=== PATIENT | male | born 1985 | race Caucasian/White ===

== ENCOUNTER 2023-02-22 19:44 | Emergency (ER) | payer OTHER ==
--- NOTE | 2023-02-22 22:01 | ED Physician Documentation ---
History of Present Illness - Stated complaint Stated Complaint: LT ANKLE PX - Chief complaint Chief Complaint: Ext Problem - History obtained from History obtained from: Patient - History of Present Illness Timing: Today Pain level max: 7 Pain level now: 4 - Additonal information Additional information: 37-year-old male states that he stepped off of his porch and rolled his left ankle earlier today. He was seen at the walk-in clinic, given a plastic splint and sent here for x-ray as their x-ray machine was reportedly down. No head, neck, back pain. No other injuries. Review of Systems Neurologic: denies: Headache PD PAST MEDICAL HISTORY - Past Medical History Past Medical History: No - Past Surgical History Past Surgical History: No - Allergies Allergies/Adverse Reactions: Allergies Allergy/AdvReac Type Severity Reaction Status Date / Time No Known Drug Allergies Allergy Verified 02/22/23 20:04 PD ED PE NORMAL - Vitals Vital signs reviewed: Yes - General General: Alert and oriented X 3, No acute distress - Derm Derm: Warm and dry - Extremities Extremities: Other (Left ankle - Tender to palpation over the lateral malleolus. Mild swelling. Otherwise normal examination of the lower extremity, foot and ankle. Neurovascular intact.) - Neuro Neuro: Alert and oriented X 3 Results - Vitals Vitals: Vital Signs - 24 hr 02/22/23 02/22/23 20:01 22:06 Temperature 36.1 C L 36.6 C Heart Rate 100 88 Respiratory 16 16 Rate Blood Pressure 146/85 H 130/80 O2 Saturation 98 100 Oxygen O2 Source Room air - Rads (name of study) Left ankle x-ray Relevant Findings:: EMP independent interpretation of test PD Medical Decision Making - ED course Complexity details: re-evaluated patient, considered differential, d/w patient ED course: No acute findings on x-ray of the left ankle other than soft tissue swelling. Placed in a gel splint for comfort and given crutches. Declines anything for home for pain. We will have him follow-up with his PCP for further care still having symptoms in 1 week. He may bear weight as tolerated. Patient counseled regarding signs and symptoms for which I believe and urgent re-evaluation would be necessary. Patient with good understanding of and agreement to plan and is comfortable going home at this time This document was made in part using voice recognition software. While efforts are made to proofread this document, sound alike and grammatical errors may occur. Departure - Departure Disposition: 01 Home, Self Care Clinical Impression: Left ankle sprain Qualifiers: Encounter type: initial encounter Involved ligament of ankle: unspecified ligament Qualified Code(s): S93.402A - Sprain of unspecified ligament of left ankle, initial encounter Condition: Good Instructions: ED Sprain Ankle W X Ray Follow-Up: your,doctor in 1 week [Other] Comments: Your x-ray does not show any fractures or dislocations tonight. You were placed in an ankle brace and given crutches. You can use Motrin or Tylenol as needed for pain. You may bear weight as tolerated. Ice the area to help with swelling. If you are still having pain in 1 week, you should have repeat x-rays performed. Forms: PCP List Discharge Date/Time: 02/22/23 22:06
[2023-02-22 22:15] VITALS: BP 130/80; O2SAT 100
--- NOTE | 2023-02-22 22:21 | XRAY Report ---
PROCEDURE: Ankle 3 View LT INDICATIONS: fall, ankle pain TECHNIQUE: 3 views of the ankle were acquired. COMPARISON: None. FINDINGS: Bones: No fractures or dislocations. Ankle mortise is normally aligned. No suspicious bony lesions . Soft tissues: There is a small tibiotalar joint effusion. Achilles tendon appears normal. IMPRESSION: 1. No fracture or dislocation. Reviewed by: Carlos Duque MD on 02/22/2023 10:19 PM PDT Approved by: Carlos Duque MD on 02/22/2023 10:19 PM PDT Station ID: [id number]
== END 2023-02-22 22:06 | disposition home or self-care (01) ==
LOC: ED 19:44
DX: S93.402A Sprain of unspecified ligament of left ankle, initial encounter (principal); X50.1XXA Overexertion from prolonged static or awkward postures, initial encounter; Y93.89 Activity, other specified; Y92.008 Other place in unspecified non-institutional (private) residence as the place of occurrence of the external cause
CPT/HCPCS: 99283

== ENCOUNTER 2024-01-31 14:19 | Emergency (ER) | payer OTHER ==
--- NOTE | 2024-01-31 16:05 | ED Physician Documentation ---
PD HPI CHEST PAIN - Stated complaint Stated Complaint: LT BACK PX - Chief complaint Chief Complaint: Back Pain - History obtained from History obtained from: Patient - Additional information Additional information: He has an occasional cough from smoking. Today around 11 AM he coughed and felt a sudden pain in his left mid back that is worse now when he takes a deep breath or moves in certain ways. If he can find a comfortable position there is minimal pain. PD PAST MEDICAL HISTORY - Past Medical History Past Medical History: Yes Cardiovascular: High cholesterol Psych: Depression, Anxiety - Past Surgical History Past Surgical History: Yes HEENT: Other - Present Medications Home Medications: Ambulatory Orders Medication Instructions Recorded Confirmed HYDROcod/ACETAM 5/325 [[place] 5/325] 1 - 2 tab PO Q6H PRN #15 tablet 01/31/24 - Allergies Allergies/Adverse Reactions: Allergies Allergy/AdvReac Type Severity Reaction Status Date / Time No Known Drug Allergies Allergy Verified 01/31/24 14:26 - Social History Does the pt smoke?: No Smoking Status: Never smoker Does the pt drink ETOH?: No Does the pt have substance abuse?: No Substance Use and Type: Marijuana - Immunizations Immunizations are current?: Yes - POLST Patient has POLST: No PD ED PE NORMAL - Vitals Vital signs reviewed: Yes - General General: Alert and oriented X 3, No acute distress - Neck Neck: Supple, no meningeal sign, No bony TTP - Cardiac Cardiac: RRR, No murmur - Respiratory Respiratory: No respiratory distress, Clear bilaterally, Other (Tender to the lower ribs in the posterior axillary line without overlying obvious trauma. No CVA or abdominal tenderness.) - Abdomen Abdomen: Non tender Results - Vitals Vitals: Vital Signs - 24 hr 01/31/24 14:26 Temperature 36.5 C Heart Rate 78 Respiratory 16 Rate Blood Pressure 120/82 H O2 Saturation 97 Oxygen O2 Source Room air PD Medical Decision Making - ED course ED course: Sudden onset back pain while coughing, localizes to the left lower lateral ribs. Could be intercostal muscle injury versus less likely rib fracture. Offered radiography declined by patient. Departure - Departure Disposition: 01 Home, Self Care Clinical Impression: Intercostal muscle tear Condition: Good Record reviewed to determine appropriate education?: Yes Instructions: ED Contusion Chest Wall Prescriptions: HYDROcod/ACETAM 5/325 [[place] 5/325] 1 - 2 tab PO Q6H PRN #15 tablet PRN Reason: Pain Comments: I sent your prescription electronically to [facility] in [place]. As discussed, this is most likely an intercostal muscle strain or tear, less likely to be a rib fracture per our discussion. Return for new or worsening symptoms. Follow-up with your doctor in about a week if not improved. When pain is mild just take ibuprofen and/or Tylenol, I am prescribing a short course of narcotic pain medication for you. These are potentially dangerous and addictive medications that should be used carefully. These medications may constipate you. Take an ezkt-yid-zxvrrbw stool softener (docusate) twice daily with plenty of water while taking these medications. If you go 24 hours without a bowel movement, take weqe-wfo-gerkrbh miralax, per package instructions. Do not drink or drive while taking these medications. If you received narcotic or sedating medications while in the emergency department, do not drive for 24 hours. Store this medication in a safe, secure place and out of reach of children. It is a violation of federal law to give or sell this medication to another person or to use in a manner other than prescribed. The ED will not refill narcotic prescriptions, including prescriptions lost or stolen. To dispose of unwanted medications: 1. [facility]– [place][Note 2][facility] [employer] provides a drop box for medication in pill form only (no liquids) 8:00 am to 4:30 p.m. Wednesday-Wednesday in the lobby of the [facility], [address] [place] [address]. Empty pills into ziplock bag before disposal. Call [phone] for information. 2.[employer] is a free service available to all [facility] residents. Go to [email or web address] Note that many narcotic pain relievers also contain Tylenol/acetaminophen. Please ensure that your total dose of acetaminophen from all sources does not exceed 3 g (3000 mg) per day.
[2024-01-31 16:39] VITALS: BP 129/81; O2SAT 99
== END 2024-01-31 16:15 | disposition home or self-care (01) ==
LOC: ED 14:19
DX: S29.011A Strain of muscle and tendon of front wall of thorax, initial encounter (principal); X50.0XXA Overexertion from strenuous movement or load, initial encounter; Y93.89 Activity, other specified; F17.200 Nicotine dependence, unspecified, uncomplicated
CPT/HCPCS: 99282; 99283